=== PATIENT | female | born 1945 | race Caucasian/White ===

== ENCOUNTER 2020-05-25 17:41 | Observation (INO) | payer MEDICARE ==
[~2020-05-25] VITALS: Ht 160 cm; Wt 59.9 kg
[2020-05-25 19:17] LABS: HEMOGLOBIN 14.5 gm/dl (12.3-15.3); RED BLOOD COUNT 4.41 M/UL (4.00-5.10); WHITE BLOOD COUNT 10.7 K/UL (4.5-11.0)
[2020-05-25 19:41] LABS: BUN/CREATININE RATIO 15 (0-10)
[2020-05-26] MEDS ORDERED: METOPROLOL SUCC50 MG PO (01:49)
[2020-05-26] MEDS ORDERED: DILTIAZEM ER240 M2 PO (01:50)
[2020-05-26] MEDS ORDERED: ZETIA10 MG PO (01:51)
[2020-05-26] MEDS ORDERED: ADULT LOW DOSE81 MG PO (01:52)
[2020-05-26] MEDS ORDERED: LIPITOR80 MG PO (01:53)
[2020-05-26] MEDS ORDERED: PLAVIX75 MG PO ×2 (01:55→18:06)
[2020-05-26] MEDS ORDERED: HYDROCHLOROTHIA25 MG PO (01:55)
[2020-05-26] MEDS ORDERED: PROCARDIA XL30 MG PO (01:56)
[2020-05-26] MEDS ORDERED: ALDACTONE25 MG PO (01:57)
[2020-05-26] MEDS ORDERED: GLIMEPIRIDE4 MG PO (01:57)
[2020-05-26] MEDS ORDERED: LEVOTHYROXINE75 MC1 PO (01:58)
[2020-05-26] MEDS ORDERED: LEVEMIR100 UNIT/1 SQ (02:18)
[2020-05-26] MEDS ORDERED: GLUCOPHAGE XR500 M1 PO (11:18)
[2020-05-26] MEDS ORDERED: B-12500 MCG SL (11:43)
[2020-05-26] MEDS ORDERED: ADVIL200 MG PO (11:44)
[2020-05-26] MEDS ORDERED: LISINOPRIL10 MG PO (18:06)
[2020-05-26] MEDS ORDERED: PRAVASTATIN SOD20 MG PO (18:06)
== END 2020-05-26 20:15 | disposition home or self-care (01) ==
LOC: ER1 17:41 → MED SURG 4 20:12 → CDU 20:12 → MED SURG 4 05-26 00:45
PROVIDERS: Emergency Medicine; ADMIT Internal Medicine
DX: I63.89 Other cerebral infarction (principal); H53.8 Other visual disturbances; I10 Essential (primary) hypertension; E11.9 Type 2 diabetes mellitus without complications; E03.9 Hypothyroidism, unspecified; I48.91 Unspecified atrial fibrillation; F17.210 Nicotine dependence, cigarettes, uncomplicated; Z20.822 Contact with and (suspected) exposure to COVID-19; Z86.73 Personal history of transient ischemic attack (TIA), and cerebral infarction without residual deficits; Z88.0 Allergy status to penicillin; Z88.1 Allergy status to other antibiotic agents; Z88.2 Allergy status to sulfonamides; Z79.82 Long term (current) use of aspirin; Z79.4 Long term (current) use of insulin; Z79.899 Other long term (current) drug therapy
CPT/HCPCS: ECHO; 36415; 70450; 70496; 70498; 70551; 71045; 80053; 80061; 82550; 82553; 82962; 83874; 84484; 85025; 93005; 93306; 96372; 99285; G0378; J1650; Q9967; U0002

== ENCOUNTER → 2020-07-22 | Outpatient (CLI) | payer MEDICARE ==
[~2020-07-22] MED LIST: ADULT LOW DOSE81 MG PO; ADVIL200 MG PO; ALDACTONE25 MG PO; B-12500 MCG SL; DILTIAZEM ER240 M2 PO; GLIMEPIRIDE4 MG PO; GLUCOPHAGE XR500 M1 PO; HYDROCHLOROTHIA25 MG PO; LEVEMIR100 UNIT/1 SQ; LEVOTHYROXINE75 MC1 PO; LIPITOR80 MG PO; LISINOPRIL10 MG PO; METOPROLOL SUCC50 MG PO; PLAVIX75 MG PO; PRAVASTATIN SOD20 MG PO; PROCARDIA XL30 MG PO; ZETIA10 MG PO
== END ==
LOC: EXRD 15:15
DX: M79.604 Pain in right leg (principal); M79.605 Pain in left leg; R93.6 Abnormal findings on diagnostic imaging of limbs
CPT/HCPCS: 93925

== ENCOUNTER 2020-12-15 12:58 | Observation (INO) | payer MEDICARE ==
[~2020-12-15] VITALS: Ht 160 cm; Wt 61.2 kg
[~2020-12-15 12:58] MED LIST changes: -LEVOTHYROXINE75 MC1 PO; +LEVOTHYROXINE75 MCG PO
[2020-12-15 13:53] LABS: HEMOGLOBIN 12.5 gm/dl (12.3-15.3); RED BLOOD COUNT 3.74 M/UL (4.00-5.10); WHITE BLOOD COUNT 11.4 K/UL (4.5-11.0)
[2020-12-15 14:27] LABS: BUN/CREATININE RATIO 14 (0-10)
[2020-12-15] MEDS ORDERED: LISINOPRIL10 MG PO (18:08)
[2020-12-16 06:25] LABS: RED BLOOD COUNT 3.67 M/UL (4.00-5.10)
[2020-12-17] MEDS ORDERED: LOPRESSOR 50 MG50 MG PO (16:01)
== END 2020-12-17 19:00 | disposition home or self-care (01) ==
LOC: ER1 12:58 → M/S 16:16 → CDU 16:16 → M/S 18:19
PROVIDERS: Physician Assistant Medical; Student in an Organized Health Care Education/Training Program; ADMIT Internal Medicine Infectious Disease
DX: I63.9 Cerebral infarction, unspecified (principal); G81.91 Hemiplegia, unspecified affecting right dominant side; R47.1 Dysarthria and anarthria; R13.10 Dysphagia, unspecified; R29.810 Facial weakness; R29.702 NIHSS score 2; E11.9 Type 2 diabetes mellitus without complications; I10 Essential (primary) hypertension; E03.9 Hypothyroidism, unspecified; E78.5 Hyperlipidemia, unspecified; Z20.822 Contact with and (suspected) exposure to COVID-19; Z86.73 Personal history of transient ischemic attack (TIA), and cerebral infarction without residual deficits; Z88.2 Allergy status to sulfonamides; Z79.82 Long term (current) use of aspirin; Z79.84 Long term (current) use of oral hypoglycemic drugs; Z79.4 Long term (current) use of insulin; Z79.02 Long term (current) use of antithrombotics/antiplatelets; Z79.899 Other long term (current) drug therapy; Z87.891 Personal history of nicotine dependence
CPT/HCPCS: ECHO; 36415; 70450; 70551; 71045; 74230; 80048; 80053; 80061; 82550; 82553; 82962; 83036; 83735; 83874; 84484; 85025; 85027; 92526; 92610; 92611-GN; 93005; 93306; 96372; 97110-GP-CQ; 97116-GP-CQ; 97161; 97165; 99285; G0378; J1650; U0002

== ENCOUNTER → 2021-02-09 | Outpatient (CLI) | payer MEDICARE ==
[~2021-02-09] MED LIST changes: +LOPRESSOR 50 MG50 MG PO
== END ==
LOC: HEART 5 10:21
DX: R13.10 Dysphagia, unspecified (principal)

== ENCOUNTER 2021-07-03 18:05 | Emergency (ER) | payer MEDICARE ==
[2021-07-03 19:06] LABS: RED BLOOD COUNT 2.48 M/UL (4.00-5.10); WHITE BLOOD COUNT 9.7 K/UL (4.5-11.0)
[2021-07-03 19:49] LABS: HEMOGLOBIN 5.2 gm/dl (12.3-15.3)
== END 2021-07-03 23:23 | disposition short-term general hospital (02) ==
LOC: ER1 18:05
PROVIDERS: Student in an Organized Health Care Education/Training Program
DX: D64.9 Anemia, unspecified (principal); I11.0 Hypertensive heart disease with heart failure; I50.9 Heart failure, unspecified; E11.9 Type 2 diabetes mellitus without complications; I21.4 Non-ST elevation (NSTEMI) myocardial infarction; Z20.822 Contact with and (suspected) exposure to COVID-19; K92.2 Gastrointestinal hemorrhage, unspecified; R57.9 Shock, unspecified; J96.90 Respiratory failure, unspecified, unspecified whether with hypoxia or hypercapnia; E78.5 Hyperlipidemia, unspecified; N17.9 Acute kidney failure, unspecified; F17.210 Nicotine dependence, cigarettes, uncomplicated; Z86.73 Personal history of transient ischemic attack (TIA), and cerebral infarction without residual deficits; Z88.0 Allergy status to penicillin; Z88.2 Allergy status to sulfonamides
CPT/HCPCS: 36430; 36600; 71045; 80053; 82272; 82550; 82553; 82803; 83605; 83880; 84484; 85025; 85379; 85652; 86140; 86850; 86900; 86901; 86920; 87040; 93005; 94640; 94660; 99285; J0696; J1100; J1940; J7030; P9016; U0002

== ENCOUNTER 2021-09-16 20:28 | Inpatient (IN) | payer MEDICARE ==
[~2021-09-16] VITALS: Ht 157.5 cm; Wt 56.8 kg
[~2021-09-16 20:28] MED LIST changes: +LISINOPRIL5 MG PO
[2021-09-16 20:56] LABS: HEMOGLOBIN 11.5 gm/dl (12.3-15.3); RED BLOOD COUNT 3.96 M/UL (4.00-5.10); WHITE BLOOD COUNT 21.3 K/UL (4.5-11.0)
[2021-09-17] MEDS ORDERED: ATORVASTATIN CA80 MG PO (10:53)
[2021-09-17] MEDS ORDERED: PROTONIX40 MG PO (10:54)
[2021-09-18 02:57] LABS: HEMOGLOBIN 9.6 gm/dl (12.3-15.3)
[2021-09-18 03:00] LABS: RED BLOOD COUNT 3.32 M/UL (4.00-5.10); WHITE BLOOD COUNT 11.2 K/UL (4.5-11.0)
--- NOTE | 2021-09-18 11:21 | NUR ---
DR. JONES ASKED RN TO FIND OUT WHY SCANS HAD NOT BEEN COMPLETED. RN CALLED RADIOLODY WHO INFORMED HER THAT SCANS HAD BEEN DONE BUT NOT READ. RADIOLOGY STAFF INFORMED RN THAT SOMEONE FROM [place] WOULD BE COMING TODAY AND SCANS SHOULD BE READ LATER TODAY.
[2021-09-19 06:20] LABS: RED BLOOD COUNT 3.51 M/UL (4.00-5.10)
[2021-09-19 06:21] LABS: WHITE BLOOD COUNT 6.4 K/UL (4.5-11.0)
[2021-09-20 06:37] LABS: HEMOGLOBIN 9.9 gm/dl (12.3-15.3); RED BLOOD COUNT 3.43 M/UL (4.00-5.10); WHITE BLOOD COUNT 5.8 K/UL (4.5-11.0)
[2021-09-20 07:02] LABS: BUN/CREATININE RATIO 21 (0-10)
[2021-09-21] MEDS ORDERED: COZAAR 25MG TAB25 MG PO (09:28)
[2021-09-21] MEDS ORDERED: ASPIRIN EC81 MG PO (09:28)
[2021-09-21] MEDS ORDERED: LOPRESSOR 25 MG25 MG PO (09:28)
[2021-09-21] MEDS ORDERED: NICOTINE PATCH1 EAC2 TD (09:28)
--- NOTE | 2021-09-21 10:53 | NUR ---
REPORT CALLED TO ALEXEY AT [facility]. PATIENT IV DISCONTINUED, CATHETER INTACT. PATIENT TOLERATED WELL. AWAITING BROTHER FOR TRANSPORT HOME.
== END 2021-09-21 11:52 | disposition home health service (06) | DRG 565 ==
LOC: ER1 20:28 → CDU 09-17 04:56 → MED SURG 4 09-17 04:56 → CDU 09-17 06:18 → MED SURG 4 09-17 06:49
PROVIDERS: Internal Medicine; Physician Assistant; Student in an Organized Health Care Education/Training Program; ADMIT Internal Medicine
PROC: B24BZZZ Ultrasonography of Heart with Aorta (ICD-10-PCS; principal; 2021-09-17)
DX: T79.6XXA Traumatic ischemia of muscle, initial encounter (principal); I42.0 Dilated cardiomyopathy; N17.9 Acute kidney failure, unspecified; L03.115 Cellulitis of right lower limb; Z20.822 Contact with and (suspected) exposure to COVID-19; D72.829 Elevated white blood cell count, unspecified; E03.9 Hypothyroidism, unspecified; E11.9 Type 2 diabetes mellitus without complications; I34.0 Nonrheumatic mitral (valve) insufficiency; I25.5 Ischemic cardiomyopathy; I87.8 Other specified disorders of veins; I50.9 Heart failure, unspecified; I11.0 Hypertensive heart disease with heart failure; F17.210 Nicotine dependence, cigarettes, uncomplicated; R53.81 Other malaise; W18.30XA Fall on same level, unspecified, initial encounter; Y92.009 Unspecified place in unspecified non-institutional (private) residence as the place of occurrence of the external cause; Z86.73 Personal history of transient ischemic attack (TIA), and cerebral infarction without residual deficits; Z79.01 Long term (current) use of anticoagulants; Z79.82 Long term (current) use of aspirin; Z88.0 Allergy status to penicillin; Z88.2 Allergy status to sulfonamides; Z82.49 Family history of ischemic heart disease and other diseases of the circulatory system
CPT/HCPCS: ECHO; 0240U; 36415; 71045; 72100; 72170; 80048; 80053; 82550; 82553; 82962; 83605; 83880; 84439; 84443; 84484; 85025; 85730; 86140; 87040; 93005; 93306; 96374; 97110-GP-CQ; 97116; 97116-GP-CQ; 97161; 97165; 97530-GP-CQ; 99285; J0696; J1644; J1650